=== PATIENT | female | born 1970 | race Caucasian/White ===

== ENCOUNTER 2020-01-13 08:11 | Emergency (ER) | payer MEDICAID ==
[~2020-01-13] VITALS: Ht 152.4 cm; Wt 54.0 kg
[~2020-01-13 08:11] MED LIST: ADVIL
[2020-01-13] MEDS ORDERED: KETOROLAC 30MG/ML VIAL IV STA (09:09)
[2020-01-13 09:40] LABS: CLARITY URINE CLEAR (CLEAR); COLOR URINE YELLOW (YELLOW); KETONES URINE NEGATIVE (NEGATIVE); LEUKOCYTE ESTERASE URINE NEGATIVE (NEGATIVE); NITRITE URINE NEGATIVE (NEGATIVE); OCCULT BLOOD URINE 3+ (NEGATIVE); PROTEIN URINE TRACE (NEGATIVE); SPECIFIC GRAVITY URINE 1.027 (1.005-1.030); UROBILINOGEN URINE 0.2 E.U./dL (0.2-1.0)
[2020-01-13 09:41] LABS: BASOPHILS % 0.5 % (0.0-2.0); EOSINOPHILS % 1.5 % (0.0-5.0); HEMATOCRIT. 34.9 % (36.0-48.0); HEMOGLOBIN. 12.4 g/dL (12.0-16.0); LYMPHOCYTES % 21.8 % (20.0-50.0); MEAN CORPUSCULAR HEMOGLOBIN 34.8 pg (28.0-32.0); MEAN CORPUSCULAR VOLUME 98.3 fL (81.0-99.0); MEAN PLATELET VOLUME 8.2 fl (7.4-10.4); MONOCYTES % 5.7 % (2.0-8.0); NEUTROPHILS % 70.5 % (40.0-76.0); PLATELET 245 x1000/uL (130-400); RED BLOOD CELL COUNT 3.55 mill/uL (4.2-5.4); RED CELL DISTRIBUTION WIDTH 13.3 % (11.6-14.6)
[2020-01-13 09:56] LABS: CHLORIDE 108 mEq/L (98-107)
[2020-01-13 10:00] LABS: HCG SCREEN NEGATIVE
[2020-01-13] MEDS ORDERED: IOHEXOL-300 100 ML BOTTLE ONE (10:34)
[2020-01-13 12:06] VITALS: BP 125/66
== END 2020-01-13 12:53 | disposition home or self-care (01) ==
LOC: ER 08:11
DX: N94.6 Dysmenorrhea, unspecified (principal); R03.0 Elevated blood-pressure reading, without diagnosis of hypertension
CPT/HCPCS: 36415; 74177; 76830; 76856; 80053; 81003; 81025; 83690; 84703; 85025; 96374; 99285; J1885; Q9967

== ENCOUNTER 2022-12-01 16:06 | Emergency (ER) | payer MEDICAID ==
[~2022-12-01] VITALS: Ht 157.5 cm; Wt 80.0 kg
[2022-12-01 16:13] VITALS: BP 154/78
== END 2022-12-01 18:57 | disposition home or self-care (01) ==
LOC: ER 16:06
DX: R45.6 Violent behavior (principal)
CPT/HCPCS: 99283